=== PATIENT | male | born 1940 | race Caucasian/White ===

== ENCOUNTER → 2017-11-11 | Outpatient (CLI) | payer OTHER ==
[~2017-11-11] MED LIST: ASPI-650 PO; DOCU-131 PO; LOSA50TA6 PO; METO50TA82 PO; POLY17PO5 PO; POTA10TA11 PO; REGADENOSON 0.4 MG/5 ML SYRINGE ONE
== END | disposition home or self-care (01) ==
LOC: CFH 12:16
PROVIDERS: ATTEND Nurse Practitioner Family
DX: I45.19 Other right bundle-branch block (principal); I34.8 Other nonrheumatic mitral valve disorders; I35.8 Other nonrheumatic aortic valve disorders; I11.9 Hypertensive heart disease without heart failure; I47.2 Ventricular tachycardia; I48.0 Paroxysmal atrial fibrillation; Z86.73 Personal history of transient ischemic attack (TIA), and cerebral infarction without residual deficits
CPT/HCPCS: 78452; 93017; 93306; A9502; J2785

== ENCOUNTER 2018-06-13 09:31 | Outpatient (CLI) | payer OTHER ==
[~2018-06-13 09:31] MED LIST changes: +LOSA50TA14 PO; -LOSA50TA6 PO; -REGADENOSON 0.4 MG/5 ML SYRINGE ONE
== END 2018-06-13 23:59 | disposition home or self-care (01) ==
LOC: CVU 09:31
PROVIDERS: ATTEND Internal Medicine Cardiovascular Disease
DX: I65.22 Occlusion and stenosis of left carotid artery (principal); I77.3 Arterial fibromuscular dysplasia; E78.5 Hyperlipidemia, unspecified; I10 Essential (primary) hypertension; Z86.73 Personal history of transient ischemic attack (TIA), and cerebral infarction without residual deficits
CPT/HCPCS: 93880

== ENCOUNTER 2018-07-07 12:17 | Day surgery (SDC) | payer OTHER ==
[2018-07-07] MEDS ORDERED: FURO20TA3 PO (13:38)
[2018-07-07] MEDS ORDERED: VITA1CAP PO (13:38)
[2018-07-07] MEDS ORDERED: CHOL5000 PO (13:38)
[2018-07-07] MEDS ORDERED: ATOR40TA PO (13:38)
[2018-07-07] MEDS ORDERED: APIX5TAB PO (13:38)
[2018-07-07] MEDS ORDERED: UBID1CAP53 PO (13:38)
[2018-07-07] MEDS ORDERED: LIDOCAINE-MPF 1%, 5ML ONE (13:39)
== END 2018-07-07 14:22 | disposition home or self-care (01) ==
LOC: CACL 12:17
PROVIDERS: ATTEND Internal Medicine Cardiovascular Disease
DX: Z45.09 Encounter for adjustment and management of other cardiac device (principal); I48.0 Paroxysmal atrial fibrillation; E78.2 Mixed hyperlipidemia; I10 Essential (primary) hypertension; I65.22 Occlusion and stenosis of left carotid artery; I47.2 Ventricular tachycardia; Z86.73 Personal history of transient ischemic attack (TIA), and cerebral infarction without residual deficits
CPT/HCPCS: 33286